=== PATIENT | female | born 1950 | race Caucasian/White ===

== ENCOUNTER 2018-11-11 16:34 | Emergency (ER) | payer BC, OTHER ==
[~2018-11-11] VITALS: Ht 167.6 cm; Wt 96.6 kg
[~2018-11-11 16:34] MED LIST: LIPITOR10 MG PO; NITROQUICK0.4 M1; PLAVIX75 MG PO; PROTONIX40 M1; TRADJENTA5 MG PO; Z.0.GLUCOPHAGE500 MG; Z.0.TOPROL XL50 MG PO
--- OUTSIDE RECORDS SUMMARY | 2018-11-11 16:36 | XMS REPORT | Clinical Summary ---
Author Author ROSY CryoXtract InstrumentsNell J. Redfield Memorial HospitalRegenerative Medical SolutionsOrlando [facility] Address Unknown Phone Unavailable Care Team Providers Care Multicultural Manager Name Role Phone Sharpless PCP Allergies Comments Active Allergy Reactions Severity Noted Date Bismuth Subsalicylate 01/28/2016 Pseudoephedrine Hcl 01/28/2016 Medications End Date Status Medication Sig Dispensed Refills Start Date Active nitroglycerin (NITROSTAT) Place 0.4 mg 0 0.4 MG SL tablet under the tongue every 5 (five) minutes as needed for Chest pain Put 1 pill under tongue every 5min as needed for chest pain.No more than 3 doses in 15min.Call 911 if pain is unrelieved 5min after 1st dose . Active Problems Problem Noted Date Chest pain, unspecified type 01/28/2016 Unstable angina 01/28/2016 CAD (coronary artery disease) 01/28/2016 Overview: PCI in 2011 Hyperlipidemia 01/28/2016 Obesity 01/28/2016 JOHN (obstructive sleep apnea) 01/28/2016 PAD (peripheral artery disease) 01/28/2016 Overview: S/p left carotid endarectomy Social History Date Tobacco Use Types Packs/Day Years Used Unknown If Ever Smoked Alcohol Use Drinks/Week oz/Week Comments No Sex Assigned at Date Recorded Not on file Industry Job Start Date Occupation Not on file Not on file Not on file Travel End Travel History Travel Start No recent travel history available. Last Filed Vital Signs Not on file Plan of Treatment Not on file Implants Device Identifier Shelf Expiration Date Model / Serial / Lot Implanted Type Area Manufactur er 10/26/2016 [id number] / / [id number] Device Clsr Angio-Seal Vip 6fr Cardi[employer]asc [facility] [id number] - [id number] ular MED:CARDIA Implanted: Qty: 1 on 01/28/2016 by Leandro Brown MD Results Not on fileafter 11/10/2017 Insurance Payer Benefit Subscriber ID Type Phone Address Plan / Group BLUE [employer] BCBS OS xxxxxxxxxxxx PPO [phone] [address] POS/PPO/[place] [address] O Advance Directives For more information, please contact: [facility] [address] [place] [id number] Date Inactivated Comments Code Status Date Activated 01/28/2016 8:47 PM Full Code 01/28/2016 4:30 PM This code status was determined by: Patient
--- OUTSIDE RECORDS SUMMARY | 2018-11-11 16:36 | XMS REPORT | Summary of Care ---
Author Author Ayaka Ayala M.A. Unknown Address Unknown Phone Unavailable Care Team Providers Care Stockbroker Name Role Phone EDWIN MAURICE D.O. Unavailable Unavailable GERMÁN BUENROSTRO M.D. Unavailable Unavailable Ayaka Ayala M.A. Unavailable Unavailable Germán Buenrostro MD Unavailable Unavailable Unavailable Unavailable Functional Status Name Dates Details Functional status health issues are not documented Status: Name Dates Details Cognitive status health issues are not documented Status: Problems Name Dates Details Cancer screening (V76.9, Z12.9) Status: Active Irritable bowel syndrome (564.1, K58.9) Status: Active Atherosclerosis (440.9, I70.90) Status: Active High cholesterol (272.0, E78.00) Status: Active Edema (782.3, R60.9) Status: Active Vitamin D insufficiency (268.9, E55.9) Status: Active Rash, skin (782.1, R21) Status: Active Screening for breast cancer (V76.10, Z12.31) Status: Active Obesity (BMI 30-39.9) (278.00, E66.9) Status: Active HTN (hypertension) (401.9, I10) Status: Active Diabetes mellitus (250.00, E11.9) Status: Active GERD (gastroesophageal reflux disease) (530.81, K21.9) Status: Active Medications Name Dates Details Atorvastatin Calcium 80 MG Oral Tablet TAKE 1 TABLET BY MOUTH EVERY DAY Quantity: 90 YEH D.O., EPIFANIO-ARACELIS * Start : 20-May-2016 Active MetFORMIN HCl - 500 MG Oral Tablet TAKE TWO TABLETS BY MOUTH TWICE DAILY * Quantity: 56 Refills: 0 GERMÁN BUENROSTRO M.D. * Start : 09-Jun-2017 Active Fenofibrate 54 MG Oral Tablet TAKE 1 TABLET BY MOUTH EVERY DAY * Quantity: 90 Refills: 1 YEH D.O., EDWIN * Start : 20-May-2016 Active Pantoprazole Sodium 40 MG Oral Tablet Delayed Release TAKE 1 TABLET BY MOUTH EVERY DAY * Quantity: 30 Refills: 0 YEH D.O., EDWIN * Start : 20-May-2016 Active Aspirin EC Low Dose 81 MG Oral Tablet Delayed Release TAKE 1 TABLET DAILY. * Refills: 0 * Start : 20-May-2016 Active Furosemide 40 MG Oral Tablet TAKE 1 TABLET BY MOUTH EVERY DAY * Quantity: 90 Refills: 1 YEH D.O., EDWIN * Start : 20-May-2017 Active Metoprolol Succinate ER 25 MG Oral Tablet Extended Release 24 Hour TAKE 1 TABLET BY MOUTH EVERY DAY * Quantity: 90 Refills: 1 YEH D.O., EDWIN * Start : 20-May-2017 Active Clopidogrel Bisulfate 75 MG Oral Tablet TAKE ONE TABLET BY MOUTH ONCE DAILY * Quantity: 90 Refills: 1 YEH D.O., EDWIN Active Nitroglycerin 0.4 MG Sublingual Tablet Sublingual PLACE 1 TABLET UNDER THE TONGUE EVERY 5 MINUTES UP TO 3 DOSES NEEDED FOR CHES T PAIN. * Quantity: 100 Refills: 0 GERMÁN BUENROSTRO M.D. Active Vitamin B-6 100 MG Oral Tablet TAKE 1 TABLET DAILY DIRECTED. * Refills: 0 Active Niacin 500 MG Oral Tablet TAKE 1 TABLET DAILY DIRECTED. * Refills: 0 Active OneTouch Delica Lancets 33G USE AND DISCARD 1 LANCET DAILY TO MONITOR BLOOD SUGAR * Quantity: 1 Refills: 5 YEH D.O., EDWIN * Start : 08-Jun-2017 Active 100 Unit Box OneTouch Ultra Blue In Vitro Strip test once daily * Quantity: 1 Refills: 1 YEH D.O., EDWIN * Start : 08-Jun-2017 Active 100 Strip Box MetroNIDAZOLE 0.75 % External Gel APPLY AND RUB IN A THIN FILM TO AFFECTED AREAS TWICE DAILY.(AM AND PM). * Quantity: 1 Refills: 2 YEH D.O., EDWIN * Start : 08-Jun-2017 Active 45 GM Tube Allergies and Adverse Reactions Name Dates Details Pepto-Bismol (Allergy) Status: Active Sudafed (Allergy) Status: Active Past Medical History Name Dates Details History of cardiac disorder (V12.50, Z86.79) Status: Resolved History of diabetes mellitus (V12.29, Z86.39) Status: Resolved Procedures Procedure Dates Details [QH] LIPID PANEL WITH REFLEX TO DIRECT LDL Date: 08-Jun-2017 [QLH] CBC (INCLUDES DIFF/PLT) Date: 08-Jun-2017 [QLH] CMP W/EGFR Date: 08-Jun-2017 [QLH] HEMOGLOBIN A1c Date: 08-Jun-2017 [QLH] MICROALBUMIN, RANDOM URINE (W/CREATININE) Date: 08-Jun-2017 [QLH] TSH, 3RD GENERATION W/REFLEX TO FT4 Date: 08-Jun-2017 [place] Breast mammogram screen bilateral 92426 Date: 08-Jun-2017 History of Gallbladder Surgery Completed History of Hysterectomy Completed History of Neck Surgery Completed Immunization Name Dates Details Immunizations not documented Family History Name Dates Details Family history of malignant neoplasm (V16.9, Z80.9) Status: Active Family history of High cholesterol (272.0, E78.00) Status: Active Name Dates Details Family history of High cholesterol (272.0, E78.00) Status: Active Family history of cerebrovascular accident (CVA) (V17.1, Z82.3) Status: Active Name Dates Details Family history of malignant neoplasm of breast (V16.3, Z80.3) Status: Active Family history of diabetes mellitus (V18.0, Z83.3) Status: Active Family history of High cholesterol (272.0, E78.00) Status: Active Social History Name Dates Details - Status: Name Dates Details Never smoker Vital Signs Date Test Result Details [id number] BP Systolic 128 mm[Hg] Status: Comments: Location: LUE; Position: Sitting BP Diastolic 74 mm[Hg] Status: Comments: Location: LUE; Position: Sitting Height 68 in Status: Weight 208 lb Status: Body Mass Index Calculated 31.63 kg/m2 Status: Body Surface Area Calculated 2.08 m2 Status: Temperature 98.4 f Status: Comments: Method: Temporal Respiration Rate 16 /min Status: Heart Rate 94 /min Status: Results Date Description Value Details [id number] [QLH] CBC (INCLUDES DIFF/PLT) WBC 6.3 {K/CMM} Range: 3.7-10.4 RBC 3.94 {M/CMM} (Below low threshold) Range: 4.20-5.40 Hgb 11.7 g/dl (Below low threshold) Range: 12.0-16.0 Hct 34.5 % (Below low threshold) Range: 36.0-48.0 MCV 87.6 fL Range: 80.0-98.0 MCH 29.7 pg Range: 27.0-31.0 MCHC 33.9 g/dl Range: 32.0-36.0 RDW 15.9 % (Above high threshold) Range: 11.5-14.5 Platelet 259 {K/CMM} Range: 133-450 Mean Platelet Volume 10.9 fL (Above high threshold) Range: 7.4-10.4 57-[id number] [QL] Differential Segmented Neutrophils 54.9 % Range: 45.0-75.0 Monocytes 7.2 % Range: 2.0-12.0 Lymphocytes 35.1 % Range: 20.0-40.0 Eosinophils 1.9 % Range: 0.0-4.0 Basophils 0.9 % Range: 0.0-1.0 Segs-Bands # 3.4 {K/CMM} Range: 1.5-8.1 Lymphocytes # 2.2 {K/CMM} Range: 1.0-5.5 Monocytes # 0.5 {K/CMM} Range: 0.0-0.8 Eosinophils # 0.1 {K/CMM} Range: 0.0-0.5 Basophils # 0.1 {K/CMM} Range: 0.0-0.2 82-[id number] [QLH] CMP W/EGFR Sodium Level 143 {mEq/l} Range: 135-145 Potassium Level 4.0 {mEq/l} Range: 3.5-5.1 Chloride Level 107 {mEq/l} Range: 95-109 Carbon Dioxide 26 {mEq/l} Range: 24-32 AGAP 14.0 {mEq/l} Range: 10.0-20.0 Glucose Lvl 138 mg/dl (Above high threshold) Range: 70-99 Comments: Adult reference range values reflect the clinical guidelinesof the [place] [employer]. Creatinine Lvl 0.90 mg/dl Range: 0.50-1.40 Blood Urea Nitrogen 12 mg/dl Range: 7-22 BUN/Creatinine Ratio 13 Range: 6-25 Total Protein 7.6 g/dl Range: 6.4-8.4 Albumin Lvl 4.1 g/dl Range: 3.5-5.0 Globulin 3.5 g/dl Range: 2.7-4.2 A/G Ratio 1.2 Range: 0.7-1.6 Calcium Level Total 9.5 mg/dl Range: 8.5-10.5 ALT 36 u/l Range: 0-65 AST 24 u/l Range: 0-37 Alk Phos 93 u/l Range: 39-136 Bili Total 0.4 mg/dl Range: 0.2-1.3 eGFR 67 {ML/MIN/1.7} Comments: The eGFR is calculated using the CKD-EPI formula. In most young, healthyindividuals the eGFR will be >90 mL/min/1.73m2. The eGFR declines with age. AneGFR of 60-89 may be normal in some populations, particularly the elderly, forwhom the CKD-EPI formula has not been extensively validated. Use of the eGFR isnot recommended in the following populations:Individuals with unstable creatinine concentrations, including patients and those with serious co-morbid conditions.Patients with extremes in muscle mass or diet.The data above are obtained from the National Kidney Disease Education Program(NKDEP) which additionally recommends that when the eGFR is used in patientswith extremes of body mass index for purposes of drug dosing, the eGFR shouldbe multiplied by the estimated BMI. [id number] [QL] TSH, 3RD GENERATION W/REFLEX TO FT4 TSH 2.510 {uIU/ml} Range: 0.360-3.740 08-[id number]:35 [] LIPID PANEL WITH REFLEX TO DIRECT LDL Chol 155 mg/dl Range: <=199 Trig 179 mg/dl (Above high threshold) Range: <=149 HDL Cholesterol 43 mg/dl (Below low threshold) Range: >=61 CHD Risk 3.60 (Below low threshold) Range: 3.90-5.80 LDL 76 mg/dl Range: <=99 VLDL 36 [id number]-[id number] [QL] MICROALBUMIN, RANDOM URINE (W/CREATININE) Urine Microalbumin 6.5 mg/L U Creatinine 103.00 mg/dl Comments: No established reference ranges. Urine Microalbuming Creatinine Ratio 6.3 {MCG/MG_CRE} Range: <=30.0 85-[id number]:35 [QLH] VITAMIN D, 25-HYDROXY, LC/MS/MS Vitamin D, 25-OH, Total 37.1 ng/ml Range: 30.0-100.0 Comments: Reference range is based on recommendations in the EndocrineSociety Clinical Practice Guideline (J Clin Endocrinol [id number];96:4702-1565) [id number]:35 [QLH] HEMOGLOBIN A1c Hemoglobin A1c 7.0 % (Above high threshold) Range: <=5.6 04-Hkz-655129:36 [place] Digital Mammo Screening Harish [id number] Digital Mammo Screening Harish [place] SEE NOTES Comments: BILATERAL DIGITAL SCREENING MAMMOGRAM WITH CAD: 06/19/2017CLINICAL: /Z12.31 Encounter For Screening Mammogram For Malignant Neoplasm OfBreast. Current study was evaluated with a Computer Aided Detection (CAD) system. COMPARISON:Comparison is made to exams dated: 05/23/2016 mammogram - [facility], 09/19/2014 mammogram, and 03/17/2007 mammogram - [facility]. TECHNIQUE: Mammographic views were obtained using digital acquisition. Currentstudy was also evaluated with a Computer Aided Detection (CAD) system.FINDINGS:The tissue of both breasts is almost entirely fat. No significant masses, calcifications, or other findings are seen in eitherbreast. There has been no significant interval change.IMPRESSION: NEGATIVERECOMMENDATION:There is no mammographic evidence of malignancy. A 1 yearscreening mammogram is recommended.(06/20/2018) This exam was interpreted [id number] at [facility] Location. Professional services are provided by the [facility] Bertha MorrisDivision of Diagnostic Imaging.Marya collazo/penrad:06/20/2017 21:45:12 Monument Carver(s): RT Fabian(Wiliam)(M), [facility] sent: BI-RADS 1/2 Mammogram BI-RADS: 1 Negative--Read by: Marya Lynn MDDictated Date/time: 06/20/17 21:45Electronically Signed by: Marya Lynn MD 06/20/1820:45FINAL REPORT Plan of Care Name Dates Details Planned Observations Planned Goals not documented Planned Encounters Appointment; VALENTIN VILLATORO M.D. On: 13-Aug-2017 8:45 Instructions Name Dates Details Instructions not documented Encounters Appointment; GERMÁN BUENROSTRO M.D. Encounter Diagnosis: Problem not documented On: 20-May-2016 9:00 Appointment; GERMÁN BUENROSTRO M.D. Encounter Diagnosis: Problem not documented On: 20-Nov-2016 8:00 Appointment; EDWIN MAURICE D.O. Encounter Diagnosis: Problem not documented On: 08-Jun-2017 10:30
--- NOTE | 2018-11-11 18:06 | Diagnostic Imaging Report ---
PELVIS AP 1-2 VIEWS - 3 views HISTORY: Pain status post fall. COMPARISON: None available. FINDINGS: Bones: No acute displaced fracture. Osseous alignment is within normal limits. Lower sacrum and coccyx is obscured by rectal contents. Joints: The joint spaces are well-maintained. Soft tissues: The soft tissues appear unremarkable. IMPRESSION: No acute radiographic abnormality. Signed by: Dr. Rosey Ramon M.D. on 11/11/2018 6:03 PM
--- NOTE | 2018-11-11 18:07 | Diagnostic Imaging Report ---
KNEE LEFT THREE VIEWS - 3 views HISTORY: Pain status post fall. COMPARISON: None available. FINDINGS: Bones: No acute displaced fracture. Osseous alignment is within normal limits. Joints: The joint spaces are well-maintained. Soft tissues: The soft tissues appear unremarkable. IMPRESSION: No acute radiographic abnormality. Signed by: Dr. Rosey Ramon M.D. on 11/11/2018 6:04 PM
--- NOTE | 2018-11-11 18:09 | Diagnostic Imaging Report ---
ANKLE 3+ VIEWS LEFT, FOOT LEFT COMPLETE - 3 views HISTORY: Pain status post fall. COMPARISON: None available. FINDINGS: Bones: Horizontal lucency through the tip of the distal fibular epiphysis consistent with a nondisplaced fracture. Tiny plantar calcaneal enthesophyte. Achilles enthesopathy. Small sclerotic lesion in the posterior calcaneus probably represents a bone island. Joints: The joint spaces are well-maintained. The ankle mortise is maintained. Soft tissues: Lateral malleolar soft tissue swelling. IMPRESSION: Nondisplaced fracture of the distal fibular epiphysis. Signed by: Dr. Rosey Ramon M.D. on 11/11/2018 6:06 PM
[2018-11-11] MEDS ORDERED: ACETAMINOPHEN/CODEINE 300MG - 30MG TAB PO ONE (18:30)
[2018-11-11] MEDS ORDERED: TYLENOL WITH C1 EACH PO (19:02)
== END 2018-11-11 20:00 | disposition home or self-care (01) ==
LOC: ER 16:34
DX: S80.02XA Contusion of left knee, initial encounter (principal); S82.65XA Nondisplaced fracture of lateral malleolus of left fibula, initial encounter for closed fracture; S93.492A Sprain of other ligament of left ankle, initial encounter; S90.02XA Contusion of left ankle, initial encounter; S90.32XA Contusion of left foot, initial encounter; W01.0XXA Fall on same level from slipping, tripping and stumbling without subsequent striking against object, initial encounter; Y99.0 Civilian activity done for income or pay
CPT/HCPCS: 72170; 99283